=== PATIENT | male | born 1950 | race Caucasian/White ===

== ENCOUNTER 2016-12-11 00:04 | Emergency (ER) | payer OTHER ==
[2016-12-11 00:15] VITALS: RESP 18
[2016-12-11 00:54] LABS: Basophils % (A) 0 %; CH 31.6; CHCM 34.3; Eosinophils # (A) 0.1 k/uL (0-0.7); Eosinophils % (A) 2 %; HCT 37.9 % (39.0-53.0); HDW 2.43; Luc # (Auto) 0.11; Luc % (Auto) 1; Lymphocytes # (A) 1.4 k/uL (1.0-4.8); Lymphocytes % (A) 18 %; MCH 31.8 pg (25.0-35.0); MCHC 34.4 g/dL (31.0-37.0); MCV 92.4 fL (80.0-100.0); Monocytes # (A) 0.3 k/uL (0-1.0); Monocytes % (A) 4 %; Neutrophils # (A) 5.6 k/uL (1.3-7.7); Neutrophils % (A) 74 %; WBC 7.5 k/uL (3.8-10.6); WBC (Perox) 6.95
[2016-12-11 01:04] LABS: ALT 25 U/L (21-72); AST 17 U/L (17-59); Alkaline Phosphatase 81 U/L (38-126); Anion Gap 17 mmol/L; Blood Urea Nitrogen 9 mg/dL (9-20); Calcium 8.7 mg/dL (8.4-10.2); Carbon Dioxide 19 mmol/L (22-30); Chloride 103 mmol/L (98-107); Glucose 109 mg/dL (74-99); Non-African American GFR(MDRD) >60 (>60 ml/min/1.73 sqM); Potassium 4.1 mmol/L (3.5-5.1); Sodium 139 mmol/L (137-145); Total Bilirubin 0.3 mg/dL (0.2-1.3); Total Protein 7.5 g/dL (6.3-8.2)
--- NOTE | 2016-12-11 01:28 | CT ---
EXAM: CT Head Without Intravenous Contrast CLINICAL HISTORY: Reason: pain TECHNIQUE: Axial computed tomography images of the head/brain without intravenous contrast. CTDI is 60.30 mGy and DLP is 1253.30 mGy-cm. This CT exam was performed using one or more of the following dose reduction techniques: automated exposure control, adjustment of the mA and/or kV according to patient size, and/or use of iterative reconstruction technique. COMPARISON: No relevant prior studies available. FINDINGS: Brain: No hemorrhage. No significant white matter disease. No edema. Prominence of the CSF space posterior to the cerebellum within the posterior fossa suggesting prominent cisterna magna or less likely a posterior fossa arachnoid cyst, of incidental note. Ventricles: Mild generalized volume loss, commensurate with age. No ventriculomegaly. Bones/joints: Unremarkable. No acute fracture. Soft tissues: Mild right lateral scalp soft tissue swelling. Sinuses: Minor left maxillary sinus mucosal thickening. Mastoid air cells: Unremarkable as visualized. No mastoid effusion. Dental: Periapical lucency partially included surrounding a right upper tooth. IMPRESSION: 1. Mild right lateral scalp soft tissue swelling. No acute intracranial sequela from trauma seen. 2. Additional findings as above. EXAM: CT Cervical Spine Without Intravenous Contrast CLINICAL HISTORY: Reason: pain TECHNIQUE: Axial computed tomography images of the cervical spine without intravenous contrast. CTDI is 19.50 mGy and DLP is 343.70 mGy-cm. This CT exam was performed using one or more of the following dose reduction techniques: automated exposure control, adjustment of the mA and/or kV according to patient size, and/or use of iterative reconstruction technique. COMPARISON: No relevant prior studies available. FINDINGS: Vertebrae: Vertebral body heights and alignment are maintained without acute fracture seen. Discs/spinal canal/neural foramina: Multilevel degenerative changes throughout, including at the C1-dens level. There is associated disc space narrowing and endplate osteophyte formation throughout, greatest at C4-5 through C6-7, along with multilevel foraminal stenosis, and associated mild central canal stenosis at C4-5 through C6-7. Soft tissues: Unremarkable. Lung apices: Unremarkable as visualized. IMPRESSION: 1. No acute fracture or listhesis is seen. Clinical clearance of the cervical spine is still recommended. 2. Advanced multilevel spondylosis.
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
[2016-12-11 03:07] LABS: Appearance,Urine Clear (Clear); Bilirubin,Urine Negative (Negative); Glucose,Urine (UA) Negative (Negative); Ketones,Urine Trace (Negative); Leukocyte Esterase,Urine Negative (Negative); Nitrite,Urine Negative (Negative); Protein,Urine Negative (Negative); Specific Gravity,Urine 1.008 (1.001-1.035); UA Billing (MACRO vs. MICRO) CHEM; Urobilinogen,Urine <2.0 mg/dL (<2.0)
[2016-12-11 06:44] VITALS: BP 128/82; PULSE 79; TEMP 98.5
== END 2016-12-11 06:54 ==
LOC: EC 00:04
DX: S00.03XA Contusion of scalp, initial encounter (principal); F10.129 Alcohol abuse with intoxication, unspecified; V29.9XXA Motorcycle rider (driver) (passenger) injured in unspecified traffic accident, initial encounter; Y92.89 Other specified places as the place of occurrence of the external cause
CPT/HCPCS: 36415; 70450; 72125; 80053; 80306; 81003; 82075; 83690; 85025; 99284

== ENCOUNTER 2022-05-23 14:15 | Emergency (ER) | payer MEDICARE ==
[2022-05-23] MEDS ORDERED: KETOROLAC 15 MG/ML 1 ML VIAL IM STA (14:37)
[2022-05-23] MEDS ORDERED: ORPHENADRINE 30 MG/ML 2 ML VIAL IM STA ×2 (14:37→15:54)
--- NOTE | 2022-05-23 14:45 | ED ---
Back Pain HPI - General Chief Complaint: Back Pain/Injury Stated Complaint: leg pain Time Seen by Provider: 05/23/22 14:16 Source: patient, EMS, RN notes reviewed Limitations: no limitations - History of Present Illness Initial Comments: Patient is a 71-year-old male presenting to the emergency room via EMS with complaints of left lower back pain worse with movement which began around 10:00 today and has gotten progressively worse. He reports that the pain feels like muscle spasm and occasional shooting pain. He denies any numbness, tingling, weakness, bowel or bladder incontinence, saddle paresthesia or other reflux symptoms for cauda equina. He denies any trauma and has had back pain similar to this in the past however he reports that symptoms are more severe at this time. He has not taken any medication for the pain today and was not given anything by EMS for his pain. He denies any other complaints or concerns including any chest pain, shortness breath, abdominal pain, nausea, vomiting, urinary frequency, dysuria, fevers or chills. He has a past medical history significant for arthritis and intermittent low back pain but does not take any medications on a regular basis. - Related Data Previous Rx's Medication Instructions Recorded predniSONE [Deltasone] 20 mg PO BID 5 Days #10 tab 05/23/22 Allergies Allergy/AdvReac Type Severity Reaction Status Date / Time No Known Allergies Allergy Verified 05/23/22 16:53 Review of Systems ROS Statement: Those systems with pertinent positive or pertinent negative responses have been documented in the HPI. ROS Other: All systems not noted in ROS Statement are negative. Past Medical History Past Medical History: Osteoarthritis (OA) History of Any Multi-Drug Resistant Organisms: None Reported Past Surgical History: No Surgical Hx Reported Past Psychological History: No Psychological Hx Reported Smoking Status: Never smoker Past Alcohol Use History: Occasional Past Drug Use History: None Reported General Exam Limitations: no limitations General appearance: alert, in no apparent distress Head exam: Present: atraumatic, normocephalic, normal inspection Eye exam: Present: normal appearance, PERRL, EOMI. Absent: scleral icterus, conjunctival injection, periorbital swelling ENT exam: Present: normal exam, mucous membranes moist Neck exam: Present: normal inspection, full ROM Respiratory exam: Present: normal lung sounds bilaterally. Absent: respiratory distress, wheezes, rales, rhonchi, stridor Cardiovascular Exam: Present: regular rate, normal rhythm, normal heart sounds. Absent: systolic murmur, diastolic murmur, rubs, gallop, clicks GI/Abdominal exam: Present: soft, normal bowel sounds, hernia (Umbilical), other (Rounded). Absent: distended, tenderness, guarding, rebound, rigid Left Hip exam: Present: normal inspection, full ROM Neurovascular tendon exam: Present: no vascular compromise Back exam: Present: normal inspection, full ROM (limited by pain), tenderness Neurological exam: Present: alert, oriented X3, CN II-XII intact Psychiatric exam: Present: normal affect, normal mood Skin exam: Present: warm, dry, intact, normal color. Absent: rash Course Vital Signs 05/23/22 05/23/22 14:17 17:01 Temperature 98.5 F Pulse Rate 82 86 Respiratory 18 16 Rate Blood Pressure 148/89 140/97 O2 Sat by Pulse 97 97 Oximetry Medical Decision Making - Medical Decision Making 71-year-old male complaining of right lower back pain with increased pain with movement and previous history of back pain without any trauma. No radiculopathy or retroflex symptoms. No indication for diagnostic imaging or laboratory studies at this time. Will give anti-inflammatory and reduce dose of muscle relaxer in the setting of medication [place] monitor response. Still continued pain after Toradol and reduce dose of Norflex. Will give additional 30 mg of Norflex and Solu-Medrol. In the setting of no significant improvement from medication will obtain x-ray of lumbar spine. X-ray of the lumbar spine without acute processes, no dislocation or fracture noted. Pain improved with second dose of Norflex and Solu-Medrol. Patient able to ambulate in wong with student nurse with out significant difficulties or supportive devices. Will discharge patient home in stable condition with anti- inflammatories to utilize. Range of motion as tolerated and follow-up with primary care provider encouraged. Case discussed with Dr. Jerry. - Radiology Data Radiology results: report reviewed, image reviewed X-ray lumbosacral spine 4 view impression no acute fracture or dislocation seen in the lumbar spine. Overlying soft tissue is unremarkable. Disposition Clinical Impression: Strain of lumbar region Disposition: HOME SELF-CARE Condition: Stable Instructions (If sedation given, give patient instructions): Acute Low Back Pain (ED), Lower Back Exercises (ED), Exercise Safety (ED) Additional Instructions: Please complete course of prescribed steroids. Do not takeother anti- inflammatories while on steroids. Range of motion as tolerated encouraged. Avoid bedrest and heavy lifting Will utilize warm or cold compresses up to 20 minute intervals every 2-3 hours for pain as well. Please follow-up with your primary care provider. Please return to the Emergency Department if symptoms worsen or any other concerns. Prescriptions: predniSONE [Deltasone] 20 mg PO BID 5 Days #10 tab Is patient prescribed a controlled substance at d/c from ED?: No Referrals: None,Stated [Primary Care Provider] - 1-2 days Time of Disposition: 18:47
[2022-05-23] MEDS ORDERED: methylPREDNISolone SOD SUCCI 125 MG/2 ML VIAL IV STA (15:55)
[2022-05-23] MEDS ORDERED: methylPREDNISolone SOD SUCCI 125 MG/2 ML VIAL IM ONE (16:26)
--- NOTE | 2022-05-23 16:37 | XR ---
EXAMINATION TYPE: XR lumbosacral spine min 4V DATE OF EXAM: 05/23/2022 CLINICAL HISTORY: pain COMPARISON: NONE TECHNIQUE: Frontal, lateral, and oblique images of the lumbar spine are obtained. FINDINGS: There are 5 lumbar type vertebral bodies identified. The lumbar spine shows satisfactory alignment without evidence of acute fracture or dislocation. Vertebral body heights are within normal limits. Moderate multilevel degenerative disc space narrowing and spondylosis. Severe facet joint ar thropathy. The overlying soft tissue appears unremarkable. IMPRESSION: No acute fracture or dislocation is seen in the lumbar spine.ICD 10 NO FRACTURE, INITIAL EVALUATION
[2022-05-23 18:45] VITALS: BP 150/108; PULSE 66; RESP 18; TEMP 98.6
== END 2022-05-23 19:17 | disposition home or self-care (01) ==
LOC: EC 14:15
DX: S39.012A Strain of muscle, fascia and tendon of lower back, initial encounter (principal); M19.90 Unspecified osteoarthritis, unspecified site; X50.9XXA Other and unspecified overexertion or strenuous movements or postures, initial encounter
CPT/HCPCS: 72110; 99284; 96372 ×4; J2360; J2930; J1885